=== PATIENT | female | born 1985 ===

== ENCOUNTER 2016-10-30 01:14 | Emergency (ER) | payer OTHER ==
--- NOTE | ~2016-10-30 | ER ---
PATIENT'S NAME: JSOE BENNETT [facility] AGE: 31 Y [address] ROOM: [place] [address] LOCATION: ED ADMIT DATE: 10/30/2016 ER/Outpatient Report DISCHARGE DATE: 10/30/2016 FAMILY PHYSICIAN: Sammi Stubbs MD ATTENDING PHYSICIAN: Audie Montero Time of Arrival: 0114 hours. Time of Evaluation: 0130 hours. CHIEF COMPLAINT: This is a 31-year-old female. She is previously healthy. She is in with a complaint of allergic reaction. HISTORY OF PRESENT ILLNESS: She states she was started on an anti-thyroid medication several weeks ago. She states about 3 days ago she began having hives and lip swelling. She stopped the medications and saw her regular doctor at that time and was started on oral Benadryl. She states she initially improved, but today the symptoms suddenly became worse this afternoon associated with swelling of her lips. She felt like it is difficult to swallow. There is no difficulty breathing. PAST MEDICAL HISTORY: Significant for Graves disease. CURRENT MEDICATIONS: She currently takes Benadryl and she is on an oral steroid. She states she takes 4 pills per day, she does not know the milligram dosage. PHYSICAL EXAMINATION: GENERAL: Alert, pleasant, and cooperative female in no acute distress. VITAL SIGNS: Stable. SKIN: Warm and dry. Color is normal. HEAD, EARS, EYES, NOSE, AND THROAT: Revealed mild swelling of her lips. There is no uvular edema. Throat is clear. NECK: Supple. HEART AND LUNGS: Normal. ABDOMEN: Soft. EXTREMITIES: Normal. SKIN: Revealed urticarial lesions on her face, neck, and both upper extremities. HOSPITAL COURSE: IV was established. She was given Solu-Medrol 125 IV and Pepcid 40 IV. She had marked improvement, but not complete resolution of her symptoms. PATIENT'S NAME: JOSE BENNETT [facility] AGE: 31 Y [address] ROOM: [place] [address] LOCATION: [facility] ADMIT DATE: 10/30/2016 ER/Outpatient Report DISCHARGE DATE: 10/30/2016 FAMILY PHYSICIAN: Sammi Stubbs MD ATTENDING PHYSICIAN: Audie Montero ASSESSMENT: Ongoing allergic reaction. PLAN: She is instructed to continue her current oral steroids, add Pepcid 40 mg daily, continue Benadryl 50 mg every 6 hours. Follow up with her regular doctor as needed. AUDIE MONTERO MD JDB/modl /[id number] d: 10/30/16 0708 t: 11/01/16 0441, OUTPATIENT REPORT
[~2016-10-30 01:14] MED LIST: NORCO 5-325 MG1 TAB PO; OSCAL + D500 MG PO; PRENATAL 1+1)(P1 TAB PO; TUMS200 MG PO
== END 2016-10-30 02:58 | disposition disaster alternative care site (69) ==
LOC: GMED 01:14
DX: L50.9 Urticaria, unspecified (principal); T38.2X5A Adverse effect of antithyroid drugs, initial encounter
CPT/HCPCS: J2930